=== PATIENT | female | born 1970 | race Caucasian/White ===

== ENCOUNTER 2016-12-28 10:41 | Emergency (ER) | payer OTHER ==
[~2016-12-28 10:41] MED LIST: ALBUTEROL0.63 MG/3 INH; ALPRAZOLAM ER1 MG PO; ALPRAZOLAM0.5 MG PO; AMBIEN10 MG PO; AMBIEN5 MG PO; DULERA 100 MCG8.8 GM INH; IPRAT-ALBUT 0.5-3 ML INH; LORTAB 10-3251 EACH PO; PREDNISONE 10 M10 MG PO; PREDNISONE10 MG PO; PREDNISONE20 MG PO; PRILOSEC OTC20 MG PO; SINGULAIR10 MG PO; TESSALON PERLE100 MG PO; VENTOLIN/PROVE0.5 ML INH; ZITHROMAX250 MG PO; ZOLOFT100 MG PO; ZYRTEC10 MG PO; [UNRECOGNIZED DRUG - OTHER] PO
[2016-12-28 12:27] LABS: HEMOGLOBIN 13.8 gm/dl (12.3-15.3); RED BLOOD COUNT 4.35 M/UL (4.00-5.10); WHITE BLOOD COUNT 3.2 K/UL (4.5-11.0)
[2016-12-28 12:56] LABS: BUN/CREATININE RATIO 14 (0-10)
== END 2016-12-28 16:33 | disposition home or self-care (01) ==
LOC: ER1 10:41
PROVIDERS: Emergency Medicine
DX: J18.9 Pneumonia, unspecified organism (principal); J98.01 Acute bronchospasm; F17.200 Nicotine dependence, unspecified, uncomplicated
CPT/HCPCS: 36415; 36600; 71010; 80053; 81001; 82550; 82553; 82803; 83605; 83874; 83880; 84484; 84703; 85025; 85379; 87040; 87086; 93005; 94640; 94664; 96361; 96374; 99285; J2930; J7050; Q9963

== ENCOUNTER 2017-02-25 22:55 | Observation (INO) | payer OTHER ==
[~2017-02-25] VITALS: Ht 175.3 cm; Wt 123.4 kg
[2017-02-26 00:49] LABS: HEMOGLOBIN 14.2 gm/dl (12.3-15.3); RED BLOOD COUNT 4.24 M/UL (4.00-5.10); WHITE BLOOD COUNT 16.9 K/UL (4.5-11.0)
[2017-02-26 01:20] LABS: BUN/CREATININE RATIO 13 (0-10)
[2017-02-26] MEDS ORDERED: CEFUROXIME500 MG PO (15:33)
== END 2017-02-26 13:04 | disposition home or self-care (01) ==
LOC: ER1 22:55 → ZEROF 02-26 05:00 → M/S 02-26 05:00
PROVIDERS: Emergency Medicine; ADMIT Internal Medicine
DX: E11.65 Type 2 diabetes mellitus with hyperglycemia (principal); E87.1 Hypo-osmolality and hyponatremia; E87.6 Hypokalemia; R74.0 Nonspecific elevation of levels of transaminase and lactic acid dehydrogenase [LDH]; J44.9 Chronic obstructive pulmonary disease, unspecified; E66.01 Morbid (severe) obesity due to excess calories; K21.9 Gastro-esophageal reflux disease without esophagitis; F41.9 Anxiety disorder, unspecified; F17.210 Nicotine dependence, cigarettes, uncomplicated; Z68.41 Body mass index [BMI] 40.0-44.9, adult; Z87.01 Personal history of pneumonia (recurrent); Z80.1 Family history of malignant neoplasm of trachea, bronchus and lung; Z82.49 Family history of ischemic heart disease and other diseases of the circulatory system; Z89.019 Acquired absence of unspecified thumb; Z90.49 Acquired absence of other specified parts of digestive tract; Z96.642 Presence of left artificial hip joint; Z98.890 Other specified postprocedural states
CPT/HCPCS: 36415; 70450; 71010; 80053; 81001; 82009; 82550; 82553; 82800; 82962; 83874; 84484; 85025; 87040; 87077; 87086; 87186; 93005; 96365; 96372; 99285; G0378; J0696; J1815; J7030; J7050; J7509; Q0162